=== PATIENT | female | born 1955 | race African-American/Black ===

== ENCOUNTER 2017-06-02 09:25 | Emergency (ER) | payer OTHER, MEDICAID ==
[~2017-06-02] VITALS: Ht 162.6 cm; Wt 65.5 kg
[2017-06-02 09:28] VITALS: BP 153/92
--- NOTE | 2017-06-02 09:38 | NUR ---
PT AMBULATED TO BED 4.
--- NOTE | 2017-06-02 09:39 | NUR ---
62F BIB SELF C/O FALL X 0745 TODAY; PT C/O THROBBIGN PAIN TO MID-LOWER BACK, RADIATES TO BL LEGS, 10/10 AT THIS TIME; MILD SWELLING NOTED TO SITE AT THIS TIME; PT STATES SHE FELL OF BED THIS MORNING AND LANDED ON HER BACK; PT STATES NO LOC AT TIME OF INCIDENT; HX: RT KNEE SURGERY, RT SHOULDER SURGERY, CHRONIC BACK PAIN, CARDIAC STENT 02/2017, HTN; PT AA&OX4, PERRLA, BL LUNG SOUNDS CLEAR, RR EVEN/UNLABORED, SKIN IS WARM/DRY/INTACT AT THIS TIME; PT STATES NO N/V/D AT THIS TIME; STEADY GAIT; PT RESTING IN BED WITH HOB ELEVATED AND IN LOWEST POSITION; POSITIONED FOR COMFORT; ER MD MADE AWARE OF STATUS. WILL CONTINUE TO MONITOR.
--- NOTE | 2017-06-02 09:46 | NUR ---
ER MD DR. BUTCHER EVALUATING PT AT BEDSIDE.
[2017-06-02] MEDS ORDERED: oxyCODONE/APAP 5/325 MG 1 TAB TAB PO ONE (09:55)
--- NOTE | 2017-06-02 09:57 | NUR ---
PT TAKEN TO XRAY VIA W/C ACCOMAPANIED BY [employer] AT THIS TIME.
--- NOTE | 2017-06-02 10:25 | NUR ---
PT STATES PAIN 8/10 AT THIS TIME; PT STATES " IT'S GETTING BETTER. MY PAIN IS EASING"; POSITIONED FOR COMFORT; ER MD DR. BUTCHER NOTIFIED.
--- NOTE | 2017-06-02 10:56 | NUR ---
SOTO BUTCHER AT BEDSIDE.
[2017-06-02] MEDS ORDERED: cloNIDine 0.1 MG TAB PO ONE (11:55)
--- NOTE | 2017-06-02 11:57 | NUR ---
PT BP 190/95; PT STATES " I FEEL GOOD"; ER MD DR. BUTCHER NOTIFIED; WILL CONTINUE TO MONITOR.
--- NOTE | 2017-06-02 13:06 | NUR ---
PT APPEARS TO BE RESTING COMFORTABLY IN BED; PT STATES " I'M FEELING BETTER. MY HEAD IS FEELING BETTER TOO"; POSITIONED FOR COMFORT; ER MD DR. BUTCHER NOTIFIED; WILL CONTINUE TO MONITOR.
[2017-06-02 13:38] VITALS: BP 159/86
--- NOTE | 2017-06-02 13:38 | NUR ---
Patient discharged with v/s stable. PT BP 159/86 AND HR 59. Pt states " My HR is ususally a little low"; Pt state no headache or dizziness at this time. Pt states "I feel really good right now". Written and verbal after care instructions given and explained. Patient alert, oriented and verbalized understanding of instructions. Ambulatory with steady gait. All questions addressed prior to discharge. ID band removed. Patient advised to follow up with PMD. Rx of Flexeril and Percocet given. Patient educated on indication of medication including possible reaction and side effects. Opportunity to ask questions provided and answered.
== END 2017-06-02 13:38 | disposition home or self-care (01) ==
LOC: MED 09:25
DX: M54.5 Low back pain (principal); F17.210 Nicotine dependence, cigarettes, uncomplicated; I10 Essential (primary) hypertension; W06.XXXA Fall from bed, initial encounter; Y93.89 Activity, other specified; Y92.89 Other specified places as the place of occurrence of the external cause; Y99.8 Other external cause status
CPT/HCPCS: 72110; 99284

== ENCOUNTER 2022-06-11 17:12 | Emergency (ER) | payer OTHER, MEDICAID ==
[~2022-06-11] VITALS: Ht 162.6 cm; Wt 64.9 kg
[2022-06-11 17:26] VITALS: BP 175/79
--- NOTE | 2022-06-11 18:02 | NUR ---
67 y/o female bib self with c/o right knee pain s/p fall x yesterday. Patient has been soaking leg in epsom salt and taking tylenol with minimal relief. Patient is able to ambulate. Patient is noted with swelling and heat to right knee. Patient is noted with +1 edema to bilateral feet patient states that "she is out of her BP meds thats why she her feet are swollen." Medical History: Stent in heart, HTN, Arthritis NKDA
--- NOTE | 2022-06-11 18:58 | NUR ---
Dr. Panda evaluating patient at bedside.
[2022-06-11] MEDS ORDERED: MORPHINE SULFATE 4 MG/ML SYR IM ONE (19:00)
[2022-06-11] MEDS ORDERED: lisinopriL 20 MG TAB PO ONE (19:00)
--- NOTE | 2022-06-11 19:08 | NUR ---
Patient was taken to Radiology via wheelchair.
--- NOTE | 2022-06-11 19:18 | NUR ---
PT RETURN FROM RADIOLOGY
--- NOTE | 2022-06-11 19:23 | NUR ---
Pt report given to CEE Martin. Transfer of care at this time.
[2022-06-11] MEDS ORDERED: NAPR-54 PO (21:11)
[2022-06-11] MEDS ORDERED: HYDR-2853 PO (21:12)
--- NOTE | 2022-06-11 21:19 | NUR ---
Patient discharged with v/s stable. Written and verbal after care instructions given and explained. Patient verbalized understanding of dr. kim godwin information. Ambulatory with steady gait. All questions addressed prior to discharge. Advised to follow up with PMD.
[2022-06-11 21:21] VITALS: BP 158/84
== END 2022-06-11 21:19 | disposition home or self-care (01) ==
LOC: MED 17:12
DX: S83.91XA Sprain of unspecified site of right knee, initial encounter (principal); I10 Essential (primary) hypertension; F17.210 Nicotine dependence, cigarettes, uncomplicated; Z79.899 Other long term (current) drug therapy; W19.XXXA Unspecified fall, initial encounter; Y93.89 Activity, other specified; Y92.89 Other specified places as the place of occurrence of the external cause; Y99.8 Other external cause status
CPT/HCPCS: 73562; 96372; 99285; J2270

== ENCOUNTER 2024-03-08 20:32 | Emergency (ER) | payer BC, MEDICAID ==
[~2024-03-08] VITALS: Ht 162.6 cm; Wt 74.8 kg
[~2024-03-08 20:32] MED LIST: HYDR-2853 PO; NAPR-337 PO
[2024-03-08 20:44] VITALS: BP 167/82; PULSE 62; RESP 14; TEMP 97.5; O2SAT 99
[2024-03-08 20:57] VITALS: BP 167/82; PULSE 62; RESP 14; TEMP 97.5
[2024-03-08 21:02] VITALS: O2SAT 99
[2024-03-08] MEDS ORDERED: IBUP-2213 PO (21:23)
[2024-03-08] MEDS ORDERED: ONDANSETRON 4 MG ODT ONE (21:30)
[2024-03-08] MEDS: MORPHINE SULFATE 4 MG/ML SYR IM ONE (21:37)
[2024-03-08] MEDS: ONDANSETRON 4 MG ODT PO ONE (21:39)
== END 2024-03-08 21:40 | disposition home or self-care (01) ==
LOC: MED 20:32
DX: M25.511 Pain in right shoulder (principal); M25.561 Pain in right knee; M54.50 Low back pain, unspecified; I11.9 Hypertensive heart disease without heart failure; E11.9 Type 2 diabetes mellitus without complications; Z79.4 Long term (current) use of insulin; Z79.899 Other long term (current) drug therapy; Z90.710 Acquired absence of both cervix and uterus; Z98.890 Other specified postprocedural states
CPT/HCPCS: 96372; 99283; J2270; Q0162